=== PATIENT | female | born 1980 | race Caucasian/White ===

== ENCOUNTER 2023-06-13 15:12 | Emergency (ER) | payer MEDICAID ==
[~2023-06-13] VITALS: Ht 170.2 cm; Wt 105.0 kg
[2023-06-13 15:19] VITALS: O2SAT 99
[2023-06-13] MEDS ORDERED: AZIT250T12 MT (17:42)
[2023-06-13] MEDS ORDERED: D-ME473S50 PO (17:42)
[2023-06-13] MEDS ORDERED: NAPR-681 PO (17:42)
[2023-06-13] MEDS ORDERED: ALBU18HF2 IH (17:42)
[2023-06-13] MEDS ORDERED: CIPR2.5D20 EACHEYE (17:46)
[2023-06-13 17:59] VITALS: BP 161/91; PULSE 75; RESP 18; TEMP 98.6
== END 2023-06-13 18:00 | disposition home or self-care (01) ==
LOC: ER 15:12
DX: J20.9 Acute bronchitis, unspecified (principal); H10.9 Unspecified conjunctivitis
CPT/HCPCS: 71045; 87070; 87430; 99284